=== PATIENT | female | born 1960 | race Caucasian/White ===

== ENCOUNTER 2017-08-16 16:40 | Observation (INO) | payer BC ==
[2017-08-16] MEDS ORDERED: ZOFRAN INJ 4 MG VIAL IVP PRN ×2 (17:16→18:05)
[2017-08-16] MEDS ORDERED: NS 1000 ML 1,000 ML IV ONE ×2 (18:05)
[2017-08-16 18:20] LABS: BASOPHILS % (AUTO) 0.4 % (0.2-1.0); EOSINOPHILS % (AUTO) 0.2 % (0.9-2.9); HEMATOCRIT 44.3 % (36.0-47.0); HEMOGLOBIN 15.5 g/dL (12.0-16.0); LYMPHOCYTES % (AUTO) 18.9 % (21.0-51.0); MEAN CORPUSCULAR HEMOGLOBIN 29.3 pg (27.0-34.0); MEAN CORPUSCULAR HGB CONC 34.9 g/dL (33.0-35.0); MEAN CORPUSCULAR VOLUME 83.9 fL (80.0-100.0); MEAN PLATELET VOLUME 10.3 fL (7.4-11.0); MONOCYTES # (AUTO) 0.6 x10^3/uL (0.3-0.8); MONOCYTES % (AUTO) 6.1 % (0.0-13.0); NEUTROPHILS # (AUTO) 7.9 x10^3/uL (2.2-4.8); NEUTROPHILS % (AUTO) 74.4 % (42.0-75.0); PLATELET COUNT 227 X10^3/uL (150.0-450.0); RED BLOOD COUNT 5.29 X10^6/uL (3.5-5.4); RED CELL DISTRIBUTION WIDTH 12.4 % (11.6-16.5); WHITE BLOOD COUNT 10.6 X10^3/uL (3.6-10.0)
[2017-08-16] MEDS: HumuLIN R SUBCUT PRN (18:59)
[2017-08-16 19:00] LABS: ALANINE AMINOTRANSFERASE 50 Units/L (12-78); ALKALINE PHOSPHATASE 211 Units/L (46-116); ASPARTATE AMINO TRANSFERASE 27 Units/L (15-37); BLOOD UREA NITROGEN 29 mg/dL (7-18); CALCIUM 9.7 mg/dL (8.5-10.1); CARBON DIOXIDE 28.7 mmol/L (21-32); CHLORIDE 94 mmol/L (98-107); COR NA(FOR HYPERGLY) 139 mmol/L (136-145); CREATININE 1.31 mg/dL (0.55-1.02); SODIUM 132 mmol/L (136-145); TOTAL PROTEIN 8.5 g/dL (6.4-8.2); eGFR BLACK RACES 54 (>60); eGFR NON BLACK RACES 45 (>60)
[2017-08-16 19:09] LABS: BILIRUBIN,URINE NEGATIVE (NEGATIVE); BLOOD/HEMOGLOBIN,URINE NEGATIVE (NEGATIVE); GLUCOSE, URINE 4+ (NEGATIVE); KETONES,URINE NEGATIVE (NEGATIVE); LEUKOCYTE ESTERASE ,URINE NEGATIVE (NEGATIVE); NITRITES,URINE NEGATIVE (NEGATIVE); PROTEIN,URINE NEGATIVE (NEGATIVE); UROBILINOGEN,URINE NORMAL (NORMAL)
[2017-08-16 19:16] LABS: APPEARANCE,URINE CLEAR (CLEAR); BACTERIA,URINE NEGATIVE /HPF (NEGATIVE); COLOR,URINE YELLOW (YELLOW); RBC,URINE 0 /HPF (NEGATIVE); SQUAMOUS EPITHELIAL CELL,UR NEGATIVE /HPF (NEGATIVE)
[2017-08-16] MEDS: NS 1000 ML 1,000 ML with SODIUM BICARBONATE 8.4% INJ ADULT 50 ML IV SCH ×2 (19:44)
[2017-08-16 20:19] VITALS: BMI 25.9
[2017-08-16] MEDS: NICOTINE PATCH TD SCH (20:42)
[2017-08-16] MEDS: XANAX PO PRN (20:43)
[2017-08-16] MEDS: AMBIEN PO PRN (20:44)
[2017-08-17] MEDS: NS 1000 ML 1,000 ML with SODIUM BICARBONATE 8.4% INJ ADULT 50 ML IV SCH ×6 (01:50→19:04)
[2017-08-17 05:27] LABS: BASOPHILS % (AUTO) 0.3 % (0.2-1.0); EOSINOPHILS % (AUTO) 0.3 % (0.9-2.9); HEMATOCRIT 33.8 % (36.0-47.0); HEMOGLOBIN 11.4 g/dL (12.0-16.0); LYMPHOCYTES % (AUTO) 31.2 % (21.0-51.0); MEAN CORPUSCULAR HGB CONC 33.9 g/dL (33.0-35.0); MEAN CORPUSCULAR VOLUME 85.7 fL (80.0-100.0); MEAN PLATELET VOLUME 11.1 fL (7.4-11.0); MONOCYTES # (AUTO) 0.6 x10^3/uL (0.3-0.8); MONOCYTES % (AUTO) 9.1 % (0.0-13.0); NEUTROPHILS # (AUTO) 3.9 x10^3/uL (2.2-4.8); NEUTROPHILS % (AUTO) 59.1 % (42.0-75.0); PLATELET COUNT 149 X10^3/uL (150.0-450.0); RED BLOOD COUNT 3.94 X10^6/uL (3.5-5.4); RED CELL DISTRIBUTION WIDTH 12.5 % (11.6-16.5); WHITE BLOOD COUNT 6.5 X10^3/uL (3.6-10.0)
[2017-08-17 05:46] LABS: ALANINE AMINOTRANSFERASE 29 Units/L (12-78); ALBUMIN 2.5 g/dL (3.4-5.0); ALKALINE PHOSPHATASE 178 Units/L (46-116); ASPARTATE AMINO TRANSFERASE 19 Units/L (15-37); BLOOD UREA NITROGEN 24 mg/dL (7-18); CALCIUM 7.6 mg/dL (8.5-10.1); CARBON DIOXIDE 28.7 mmol/L (21-32); CHLORIDE 103 mmol/L (98-107); COR CA(FOR HYPOALB) 8.8 mg/dL (8.5-10.1); COR NA(FOR HYPERGLY) 146 mmol/L (136-145); CREATININE 0.99 mg/dL (0.55-1.02); SODIUM 136 mmol/L (136-145); TOTAL PROTEIN 5.5 g/dL (6.4-8.2); eGFR BLACK RACES > 60 (>60); eGFR NON BLACK RACES > 60 (>60)
[2017-08-17] MEDS: HumuLIN R SUBCUT PRN ×3 (06:46→20:38)
[2017-08-17] MEDS: NICOTINE PATCH TD SCH (08:26)
[2017-08-17] MEDS ORDERED: [UNRECOGNIZED DRUG - OTHER] PO SCH (09:38)
[2017-08-17] MEDS ORDERED: VALSARTAN PO SCH (09:38)
[2017-08-17] MEDS ORDERED: HYDROCHLOROTHIAZIDE PO SCH (09:38)
--- NOTE | 2017-08-17 10:18 | DR.UPDATE ---
H&P Update History and Physical Update: WAS SEEN IN THE OFFICE ON 08/16/16. A H&P WAS COMPLETED PRIOR TO ADMISSION. PATIENT HAS BEEN SEEN AND EXAMINED WITH NO CHANGES NOTED TO H&P. Changes noted: NO Yes with the following:
[2017-08-17] MEDS: DIOVAN TAB 160 MG PO SCH (11:02)
[2017-08-17] MEDS: LOPRESSOR TAB 50 MG PO SCH (11:02)
[2017-08-17] MEDS: HYDROCHLOROTHIAZIDE 25 MG TAB PO SCH (11:02)
[2017-08-17] MEDS: EFFEXOR XR 150 MG CAP PO SCH (11:02)
[2017-08-17] MEDS: LIPITOR TAB 40 MG PO SCH (11:02)
[2017-08-17] MEDS: INSULIN GLULISINE 5 UNIT SC SCH ×2 (11:56→17:02)
[2017-08-17] MEDS: XANAX PO PRN (20:35)
[2017-08-17] MEDS: AMBIEN PO PRN (20:35)
[2017-08-17] MEDS: CHECK PATCH XX SCH (20:37)
[2017-08-17] MEDS ORDERED: LANTUS SC SCH (21:00)
[2017-08-18] MEDS: NS 1000 ML 1,000 ML with SODIUM BICARBONATE 8.4% INJ ADULT 50 ML IV SCH ×6 (02:08→11:23)
[2017-08-18 05:38] LABS: BASOPHILS % (AUTO) 0.3 % (0.2-1.0); EOSINOPHILS % (AUTO) 0.1 % (0.9-2.9); HEMATOCRIT 33.7 % (36.0-47.0); HEMOGLOBIN 11.5 g/dL (12.0-16.0); LYMPHOCYTES # (AUTO) 1.3 X10^3/uL (1.3-2.9); MEAN CORPUSCULAR HEMOGLOBIN 29.2 pg (27.0-34.0); MEAN CORPUSCULAR HGB CONC 34.3 g/dL (33.0-35.0); MEAN CORPUSCULAR VOLUME 85.1 fL (80.0-100.0); MEAN PLATELET VOLUME 11.1 fL (7.4-11.0); MONOCYTES # (AUTO) 0.6 x10^3/uL (0.3-0.8); MONOCYTES % (AUTO) 7.3 % (0.0-13.0); NEUTROPHILS # (AUTO) 6.4 x10^3/uL (2.2-4.8); NEUTROPHILS % (AUTO) 76.3 % (42.0-75.0); PLATELET COUNT 149 X10^3/uL (150.0-450.0); RED BLOOD COUNT 3.96 X10^6/uL (3.5-5.4); RED CELL DISTRIBUTION WIDTH 12.6 % (11.6-16.5); WHITE BLOOD COUNT 8.4 X10^3/uL (3.6-10.0)
[2017-08-18] MEDS: HumuLIN R SUBCUT PRN (05:44)
[2017-08-18 06:10] LABS: ALANINE AMINOTRANSFERASE 47 Units/L (12-78); ALBUMIN 2.4 g/dL (3.4-5.0); ALKALINE PHOSPHATASE 139 Units/L (46-116); ASPARTATE AMINO TRANSFERASE 35 Units/L (15-37); BLOOD UREA NITROGEN 24 mg/dL (7-18); CALCIUM 7.7 mg/dL (8.5-10.1); CARBON DIOXIDE 29.2 mmol/L (21-32); CHLORIDE 105 mmol/L (98-107); COR NA(FOR HYPERGLY) 144 mmol/L (136-145); CREATININE 0.88 mg/dL (0.55-1.02); SODIUM 138 mmol/L (136-145); TOTAL PROTEIN 5.3 g/dL (6.4-8.2); eGFR BLACK RACES > 60 (>60); eGFR NON BLACK RACES > 60 (>60)
[2017-08-18] MEDS: INSULIN GLULISINE 5 UNIT SC SCH ×2 (08:10→12:19)
[2017-08-18] MEDS: NICOTINE PATCH TD SCH (08:10)
[2017-08-18] MEDS: CHECK PATCH XX SCH (08:11)
[2017-08-18] MEDS: DIOVAN TAB 160 MG PO SCH (08:12)
[2017-08-18] MEDS: HYDROCHLOROTHIAZIDE 25 MG TAB PO SCH (08:12)
[2017-08-18] MEDS: LIPITOR TAB 40 MG PO SCH (08:12)
[2017-08-18] MEDS: LOPRESSOR TAB 50 MG PO SCH (08:12)
[2017-08-18] MEDS: EFFEXOR XR 150 MG CAP PO SCH (08:13)
[2017-08-18 12:37] VITALS: BP 126/79
--- NOTE | 2017-08-18 14:00 | PCM.PROG ---
Progress Note - Progress Note for Day of Date: 08/17/17 - Subjective Subjective: WAS ADMITTED FOR HYPERGLYCEMIA, NAUSEA, AND VOMITING. ON ADMISSION, PATIENTS BLOOD GLUCOSE WAS NOTED TO BE 404, ACETONES NEGATIVE. TODAY, SHE IS ALERT AND ORIENTED, LYING IN BED ON MORNING ROUNDS. SHE IS NOTED WITH COMPLAINTS OF WEAKNESS AND NAUSEA, BUT DENIES VOMITING THIS MORNING. ON EXAMINATION, HEART IS REGULAR IN RATE AND RHYTHM. BILATERAL LUNGS ARE CLEAR TO AUSCULTATION. ABDOMEN IS ROUND, SOFT, AND NON-TENDER WITH NORMAL BOWEL SOUNDS NOTED IN ALL QUADRANTS. THERE IS NORMAL RANGE OF MOTION NOTED TO ALL EXTREMITIES. HER VITALS THIS MORNING ARE 97.7-78-20-98%-102/65. LABS WERE OBTAINED. ABNORMAL LAB VALUES INCLUDE THE FOLLOWING: HGB 11.4, HCT 33.8, PLT COUNT 149, BUN 24, GLUCOSE 511, CALCIUM 7.6, ALK PHOS 178, TOTAL PROTEIN 5.5, ALBUMIN 2.5. SERUM ACETONES ARE NEGATIVE. TODAY, WE PLAN TO RESUME PATIENTS HOME MEDICATIONS WHICH INCLUDE APIDRA 5 UNITS SC TID WITH MEALS AND LANTUS 30 UNITS SC AT BEDTIME. OTHERWISE, WE WILL CONTINUE WITH CURRENT PLAN OF CARE. WE PLAN TO FOLLOW UP WITH AM LABS AND CONTINUE TO MONITOR PATIENT. - Past Medical Family Social History Past Med/Fam/Surg Hx: No changes since H&P Allergies: Allergies No Known Drug Allergies Allergy (Verified 08/16/17 18:21) - Review of Systems ROS: No change since H&P - Vital Signs and I&O's Vital Signs: Temperature 98.4 F Pulse Rate [Right Brachial] 75 Pulse Rate [Left Brachial] 62 Respiratory Rate 18 Blood Pressure [Left Arm] 126/79 Blood Pressure [Right Arm] 135/85 Blood Pressure 129/84 O2 Sat by Pulse Oximetry 98 Intake and Output: Intake & Output 08/16/17 08/17/17 08/18/17 08/19/17 11:59 11:59 11:59 11:59 Intake Total 4600 5920 Balance 4600 5920 - Physical Exam Oriented: Normal Eyes: Normal Ear: Normal Nose: Normal Throat: Normal Respiratory: Normal Cardiovascular: Normal : Normal Auscultation: Bowel Sounds: Normal Palpation: Normal Tenderness: Normal Skin: Normal Musculoskeletal: Normal Psychiatric: Normal Mood Description: Calm Affect: Normal Speech Pattern: Clear, Appropriate - Laboratory and Diagnostics Result Diagrams: 08/18/17 04:25 08/18/17 04:25 Labs: Laboratory WBC 8.4 X10^3/uL (3.6-10.0) 08/18/17 04:25 RBC 3.96 X10^6/uL (3.5-5.4) 08/18/17 04:25 Hgb 11.5 g/dL (12.0-16.0) L 08/18/17 04:25 Hct 33.7 % (36.0-47.0) L 08/18/17 04:25 MCV 85.1 fL (80.0-100.0) 08/18/17 04:25 MCH 29.2 pg (27.0-34.0) 08/18/17 04:25 MCHC 34.3 g/dL (33.0-35.0) 08/18/17 04:25 RDW 12.6 % (11.6-16.5) 08/18/17 04:25 Plt Count 149 X10^3/uL (150.0-450.0) L 08/18/17 04:25 MPV 11.1 fL (7.4-11.0) H 08/18/17 04:25 Neut % 76.3 % (42.0-75.0) H 08/18/17 04:25 Lymph % 16.0 % (21.0-51.0) L 08/18/17 04:25 Alcorn % 7.3 % (0.0-13.0) 08/18/17 04:25 Eos % 0.1 % (0.9-2.9) L 08/18/17 04:25 Baso % 0.3 % (0.2-1.0) 08/18/17 04:25 Neut # 6.4 x10^3/uL (2.2-4.8) H 08/18/17 04:25 Lymph # 1.3 X10^3/uL (1.3-2.9) 08/18/17 04:25 Alcorn # 0.6 x10^3/uL (0.3-0.8) 08/18/17 04:25 Eos # 0.0 x10^3/uL (0.0-0.2) 08/18/17 04:25 Baso # 0.0 X10^3/uL (0.0-0.1) 08/18/17 04:25 Absolute Nucleated RBC 0.0 /100WBC 08/18/17 04:25 Sodium 138 mmol/L (136-145) 08/18/17 04:25 Corrected Sodium 144 mmol/L (136-145) 08/18/17 04:25 Potassium 4.2 mmol/L (3.5-5.1) 08/18/17 04:25 Chloride 105 mmol/L (98-107) 08/18/17 04:25 Carbon Dioxide 29.2 mmol/L (21-32) 08/18/17 04:25 BUN 24 mg/dL (7-18) H 08/18/17 04:25 Creatinine 0.88 mg/dL (0.55-1.02) 08/18/17 04:25 Est GFR (MDRD) Af Amer > 60 (>60) 08/18/17 04:25 Est GFR (MDRD) Non-Af > 60 (>60) 08/18/17 04:25 Glucose 352 mg/dL (65-99) H 08/18/17 04:25 Calcium 7.7 mg/dL (8.5-10.1) L 08/18/17 04:25 Corrected Calcium 9.0 mg/dL (8.5-10.1) 08/18/17 04:25 Total Bilirubin 0.20 mg/dL (0.2-1.0) 08/18/17 04:25 AST 35 Units/L (15-37) 08/18/17 04:25 ALT 47 Units/L (12-78) 08/18/17 04:25 Alkaline Phosphatase 139 Units/L (46-116) H 08/18/17 04:25 Total Protein 5.3 g/dL (6.4-8.2) L 08/18/17 04:25 Albumin 2.4 g/dL (3.4-5.0) L 08/18/17 04:25 Globulin 2.9 g/dL (2.5-4.5) 08/18/17 04:25 Albumin/Globulin Ratio 0.8 Ratio (1.1-2.1) L 08/18/17 04:25 Specimen Type Clean catch urine 01/22/18 18:52 Urine Color Yellow (YELLOW) 08/16/17 18:52 Urine Appearance Clear (CLEAR) 08/16/17 18:52 Urine pH 5.0 (5.0 - 8.0) 08/16/17 18:52 Ur Specific [place] 1.015 (1.000-1.030) 08/16/17 18:52 Urine Protein Negative (NEGATIVE) 08/16/17 18:52 Urine Glucose (UA) 4+ (NEGATIVE) 08/16/17 18:52 Urine Ketones Negative (NEGATIVE) 08/16/17 18:52 Urine Occult Blood Negative (NEGATIVE) 08/16/17 18:52 Urine Nitrite Negative (NEGATIVE) 08/16/17 18:52 Urine Bilirubin Negative (NEGATIVE) 08/16/17 18:52 Urine Acetone Negative (NEGATIVE) 08/17/17 09:25 Urine Urobilinogen Normal (NORMAL) 08/16/17 18:52 Ur Leukocyte Esterase Negative (NEGATIVE) 08/16/17 18:52 Urine RBC 0 /HPF (NEGATIVE) 08/16/17 18:52 Urine WBC 0 /HPF (NEGATIVE) 08/16/17 18:52 Ur Squamous Epith Cells Negative /HPF (NEGATIVE) 08/16/17 18:52 Urine Bacteria Negative /HPF (NEGATIVE) 08/16/17 18:52 Ur Culture Indicated? No/not indicated 08/16/17 18:52 Acetone, Semi-Quant Negative (NEGATIVE) 08/17/17 04:15 - Plan (1) Hyperglycemia without ketosis Status: Acute Plan: CONTINUE APIDRA, CONTINUE LANTUS, CONTINUE HUMULIN R SLIDING SCALE, MONITOR OTBS, CONTINUE TO MONITOR
== END 2017-08-18 13:00 | disposition home or self-care (01) ==
LOC: UNDOADMOB 16:40 → MED/SURG 16:40
PROVIDERS: ADMIT Internal Medicine; ATTEND Internal Medicine
DX: E11.65 Type 2 diabetes mellitus with hyperglycemia (principal); R11.2 Nausea with vomiting, unspecified; R51 Headache; I10 Essential (primary) hypertension; E78.2 Mixed hyperlipidemia; Z79.899 Other long term (current) drug therapy
CPT/HCPCS: 36415; 80053; 81001; 81002; 82009; 82947; 85025; A4216; A4222; G0378; J1815; J3490